=== PATIENT | female | born 1995 | race Hispanic/Latino ===

== ENCOUNTER 2022-07-22 01:12 | Inpatient (IN) | payer OTHER ==
[2022-07-22] VITALS (46 sets, daily range): BP systolic 101–154; BP diastolic 57–103
[~2022-07-22] VITALS: Ht 157.5 cm; Wt 79.3 kg
[2022-07-22] MEDS ORDERED: SYNT25TA PO (01:31)
[2022-07-22] MEDS ORDERED: PRENTAB9 PO (01:31)
[2022-07-22] MEDS ORDERED: ASPI81CH33 PO (01:31)
[2022-07-22] MEDS ORDERED: HOME MED LIST COMPLETE! XX SCH (01:35)
[2022-07-22] MEDS ORDERED: LACTATED RINGER'S 1000 ML IV STA (01:52)
[2022-07-22] MEDS ORDERED: OXYTOCIN DRIP 30 UNITS in IV 1 EA IV PRN ×6 (01:55)
[2022-07-22] MEDS ORDERED: LR 1,000 ML IV SCH (01:55)
[2022-07-22] MEDS ORDERED: METHYLERGONOVINE MALEATE 0.2MG/ML 1ML VIAL IM PRN (01:55)
[2022-07-22] MEDS ORDERED: OXYTOCIN INJ 10UNITS/ML 1ML VIAL IM PRN (01:55)
[2022-07-22] MEDS ORDERED: TRANEXAMIC ACID INJection 1,000 MG in NS 100 ML IV PRN (01:55)
[2022-07-22] MEDS ORDERED: LIDOCAINE 1% MDV 20ML VIAL INFIL PRN (01:55)
[2022-07-22 02:05] LABS: HEMATOCRIT 38.5 % (36.0-47.0); HEMOGLOBIN 13.1 g/dl (12.0-15.5); MEAN CORPUSCULAR HEMOGLOBIN 29.2 pg (27.0-33.0); MEAN CORPUSCULAR VOLUME 85.9 fl (80.0-96.0); PLATELET COUNT, AUTOMATED 209 10^3/uL (150-450); RED BLOOD COUNT 4.48 10^6/uL (4.00-5.40)
[2022-07-22] MEDS ORDERED: ONDANSETRON 4MG 2ML VIAL IV PRN ×2 (02:45→07:25)
[2022-07-22] MEDS ORDERED: diphenhydrAMINE 50MG/ML VIAL IV PRN (02:45)
[2022-07-22] MEDS ORDERED: FENTANYL/ROPIVACAINE/NACL BAG 100 ML EPIDURAL SCH (02:45)
[2022-07-22] MEDS ORDERED: ePHEDrine SULFATE 25 MG/5 ML(5MG/ML) SYRINGE IVP PRN (02:45)
[2022-07-22] MEDS ORDERED: EPIDURAL/PCA KEYS XX PRN (02:45)
[2022-07-22] MEDS ORDERED: NALOXONE INJ 0.4MG/1ML VIAL IV PRN (02:45)
[2022-07-22] MEDS ORDERED: LR 500 ML IV PRN (02:45)
[2022-07-22] MEDS ORDERED: PENICILLIN G POTASSIUM 5 MU IV 5 MU in D5W MINI-BAG PLUS 100 ML IV ONE (03:00)
[2022-07-22] MEDS ORDERED: LEVOTHYROXINE 150MCG TABLET (0.15MG) PO SCH (06:00)
[2022-07-22] MEDS ORDERED: PEN G POT 3,000,000 UNIT/50 ML 3,000,000 UNIT in IV 1 EA IV SCH (07:00)
[2022-07-22 07:08] LABS: CORD GAS ABE V -0.7; CORD GAS O2 SAT V 91.4 %; CORD GAS PCO2 V 39.9 mmHg; CORD GAS PH V 7.397 UNITS; CORD GAS PO2 V 51.4 mmHg; CORD GAS SBC V 23.7 MMOL/L; CORD GAS TCO2 V 25.2 MMOL/L
[2022-07-22 07:10] LABS: CORD GAS ABE A -3.3; CORD GAS HCO3 A 25.3 MMOL/L; CORD GAS O2 SAT A 46.4 %; CORD GAS PCO2 A 61.4 mmHg; CORD GAS PH A 7.233 UNITS; CORD GAS PO2 A 24.6 mmHg; CORD GAS SBC A 20.5 MMOL/L; CORD GAS TCO2 A 27.2 MMOL/L
[2022-07-22] MEDS ORDERED: RHOGAM 300MCG (1500IU) INJ IM SCH (07:25)
[2022-07-22] MEDS ORDERED: IBUPROFEN 800 MG TAB PO PRN (07:25)
[2022-07-22] MEDS ORDERED: ACETAMINOPHEN TAB 650MG DOSE (2X325MG) PO PRN (07:25)
[2022-07-22] MEDS ORDERED: ACETAMINOPHEN 500 MG TAB PO PRN (07:25)
[2022-07-22] MEDS ORDERED: MOM 30ML SUSPENSION UDC PO PRN (07:25)
[2022-07-22] MEDS ORDERED: DOCUSATE SODIUM 100MG CAPSULE PO PRN (07:25)
[2022-07-22] MEDS ORDERED: DIBUCAINE 1% OINTMENT 30GM TOP PRN (07:25)
[2022-07-22] MEDS ORDERED: OXYTOCIN DRIP 30 UNITS in IV 1 EA IV SCH (07:25)
[2022-07-22] MEDS ORDERED: IBUPROFEN 600MG TAB PO PRN (07:25)
[2022-07-22] MEDS ORDERED: METHYLERGONOVINE MALEATE 0.2 MG TAB PO PRN (07:25)
[2022-07-22] MEDS ORDERED: PRENATAL VITAMINS CHEWABLE TABLET PO SCH ×2 (09:00)
[2022-07-23 05:45] VITALS: BP 101/58
[2022-07-23] MEDS ORDERED: MEASLES,MUMPS,RUBELLA VACCINE INJ (MMR-II) SC.IMMUN ONE (16:00)
[2022-07-23] MEDS ORDERED: INFLUENZA QUADRIVALENT PF VACCINE 0.5ML SYRINGE IM.IMMUN ONE (16:00)
== END 2022-07-23 15:50 | disposition home or self-care (01) | DRG 807 ==
LOC: M LDO 01:12 → M LDI 01:44 → M OBS 09:00
PROVIDERS: ADMIT Obstetrics & Gynecology; ATTEND Obstetrics & Gynecology
PROC: 10E0XZZ Delivery of Products of Conception, External Approach (ICD-10-PCS; principal; 2022-07-22)
DX: O99.284 Endocrine, nutritional and metabolic diseases complicating childbirth (principal); Z37.0 Single live birth; Z3A.38 38 weeks gestation of pregnancy; E03.9 Hypothyroidism, unspecified; O99.824 Streptococcus B carrier state complicating childbirth; Z79.82 Long term (current) use of aspirin; Z79.899 Other long term (current) drug therapy; O69.82X0 Labor and delivery complicated by other cord entanglement, without compression, not applicable or unspecified